=== PATIENT | female | born 1990 | race Two or more races ===

== ENCOUNTER 2022-04-11 11:30 | Inpatient (IN) | payer BC ==
[2022-04-11] MEDS ORDERED: OXYTOCIN 30 UNITS in 0.9% NS 30 UNIT/500 ML INFUS.BAG IVPB SCH (13:00)
[2022-04-11 13:44] LABS: BASO % 0.6 % (0-2.0); EOS % 0.5 % (0-4.5); HEMATOCRIT 32.7 % (32.4-45.2); HEMOGLOBIN 11.2 GM/dL (10.7-15.3); LYMPH % 14.4 % (8-40); MCH 28.2 pg (25.7-33.7); MCHC 34.3 g/dl (32.0-36.0); MEAN CELL VOLUME 82.2 fl (80-96); MEAN PLT VOLUME 10.3 fl (7.5-11.1); NEUT % 77.5 % (42.8-82.8); PLATELET COUNT 132 10^3/uL (134-434); RBC 3.98 M/mm3 (3.60-5.2); RDW 15.7 % (11.6-15.6); WHITE BLOOD COUNT 10.3 K/mm3 (4.0-10.0)
[2022-04-11 13:55] LABS: INR 0.97 (0.83-1.09); PROTHROMBIN TIME (PATIENT) 11.2 SEC (9.7-13.0)
[2022-04-11] MEDS: ELECTROLYTE-148 SOLN 1,000 ML IV SCH ×2 (13:55→20:30)
[2022-04-11 13:57] LABS: ACTIVATED PTT 25.2 SECONDS (25.2-36.5)
[2022-04-11 14:02] LABS: CALCIUM 8.1 mg/dL (8.5-10.1)
[2022-04-11 14:03] LABS: BLOOD UREA NITROGEN 7.8 mg/dL (7-18)
[2022-04-11 14:06] LABS: CREATININE 0.6 mg/dL (0.55-1.3)
[2022-04-11] MEDS ORDERED: OXYTOCIN 30 UNITS in 0.9% NS 30 UNIT/500 ML INFUS.BAG IVPB ONE (14:11)
[2022-04-11 14:43] VITALS: BMI 42.8
[2022-04-11] MEDS ORDERED: FENTANYL/BUPIVACAINE/NS/PF - PCEA - 50 ML DISP.SYRIN EP ONE ×2 (19:08→23:50)
[2022-04-11] MEDS ORDERED: NALOXONE HCL 0.4 MG/ML VIAL IVPUSH PRN (20:03)
[2022-04-11] MEDS ORDERED: FENTANYL/BUPIVACAINE/NS/PF - PCEA - 50 ML DISP.SYRIN EP SCH (20:15)
[2022-04-12] MEDS ORDERED: LIDOCAINE HCL 1% PRESERVATIVE FREE - 30ML VIAL ONE (00:23)
[2022-04-12] MEDS ORDERED: OXYTOCIN 20 UNITS in 0.9% NS 20 UNIT/1,000 ML INFUS.BAG IV ONE (00:24)
[2022-04-12] MEDS ORDERED: BUPIVACAINE HCL/PF 0.25% (2.5MG/ML) 10 ML VIAL ONE (01:23)
[2022-04-12] MEDS ORDERED: FENTANYL/BUPIVACAINE/NS/PF - PCEA - 50 ML DISP.SYRIN EP ONE (02:59)
[2022-04-12] MEDS: oxyCODONE HCL 5 MG TABLET PO PRN ×3 (07:30→20:27)
[2022-04-12] MEDS ORDERED: METHYLERGONOVINE MALEATE 0.2 MG/1 ML AMP IM PRN (07:34)
[2022-04-12] MEDS ORDERED: WITCH HAZEL 50% (TUCKS) 40 PAD/JAR PAD TP PRN (07:34)
[2022-04-12] MEDS ORDERED: BISACODYL 10 MG SUPP.RECT RC PRN (07:34)
[2022-04-12] MEDS ORDERED: BENZOCAINE 28 GM HEMORRHOIDAL OINTMENT TP PRN (07:34)
[2022-04-12] MEDS ORDERED: ACETAMINOPHEN 325 MG TABLET (FP) PO PRN (07:34)
[2022-04-12] MEDS ORDERED: BENZOCAINE 20% 57 GM BOTTLE TP PRN (07:34)
[2022-04-12] MEDS ORDERED: OXYTOCIN 20 UNITS in 0.9% NS 20 UNIT/1,000 ML INFUS.BAG IV SCH (07:45)
[2022-04-12] MEDS: PRENATAL VITAMINS W/ FOLIC ACID TABLET (FP) PO SCH (12:23)
[2022-04-12] MEDS: IBUPROFEN 600 MG TABLET (FP) PO PRN (12:23)
[2022-04-12] MEDS ORDERED: ceFAZolin 2 GRAM PREMIX BAG IVPB ONE (13:40)
[2022-04-12] MEDS ORDERED: CEFAZOLIN SODIUM 2 GM in DEXTROSE 5%-WATER 100 ML IVPB ONE (14:00)
[2022-04-13] MEDS: oxyCODONE HCL 5 MG TABLET PO PRN (04:19)
[2022-04-13] MEDS: IBUPROFEN 600 MG TABLET (FP) PO PRN ×3 (05:39→21:22)
[2022-04-13 09:13] LABS: BASO % 0.1 % (0-2.0); EOS % 0.1 % (0-4.5); HEMATOCRIT 24.9 % (32.4-45.2); HEMOGLOBIN 8.3 GM/dL (10.7-15.3); LYMPH % 8.5 % (8-40); MCH 27.6 pg (25.7-33.7); MCHC 33.4 g/dl (32.0-36.0); MEAN CELL VOLUME 82.9 fl (80-96); MEAN PLT VOLUME 10.6 fl (7.5-11.1); MONO % 5.2 % (3.8-10.2); NEUT % 86.1 % (42.8-82.8); PLATELET COUNT 121 10^3/uL (134-434); RBC 3.01 M/mm3 (3.60-5.2); RDW 15.8 % (11.6-15.6); WHITE BLOOD COUNT 18.2 K/mm3 (4.0-10.0)
[2022-04-13] MEDS: PRENATAL VITAMINS W/ FOLIC ACID TABLET (FP) PO SCH (09:33)
[2022-04-13] MEDS ORDERED: BISACODYL 10 MG SUPP.RECT PR ONE (09:40)
[2022-04-13] MEDS: DOCUSATE SODIUM 100 MG CAPSULE (FP) PO SCH ×2 (13:17→21:23)
[2022-04-13] MEDS ORDERED: SENNOSIDES/DOCUSATE COMBO (SENNA PLUS) TABLET (UD) PO PRN (22:00)
[2022-04-14] MEDS: DOCUSATE SODIUM 100 MG CAPSULE (FP) PO SCH (05:29)
[2022-04-14] MEDS: IBUPROFEN 600 MG TABLET (FP) PO PRN (05:35)
[2022-04-14 09:05] VITALS: BP 126/79; PULSE 90; TEMP 98.9
[2022-04-14] MEDS: PRENATAL VITAMINS W/ FOLIC ACID TABLET (FP) PO SCH (09:39)
== END 2022-04-14 12:20 | disposition home or self-care (01) | DRG 807 ==
LOC: JDEL 11:30 → JLDR 12:40 → J3W 04-12 09:50
PROVIDERS: ADMIT Obstetrics & Gynecology; ATTEND Obstetrics & Gynecology
PROC: 10E0XZZ Delivery of Products of Conception, External Approach (ICD-10-PCS; principal; 2022-04-12)
PROC: 0KQM0ZZ Repair Perineum Muscle, Open Approach (ICD-10-PCS; 2022-04-12)
DX: O70.1 Second degree perineal laceration during delivery (principal); Z37.0 Single live birth; Z3A.39 39 weeks gestation of pregnancy
CPT/HCPCS: 36415; 59409; 72170-TC-FY; 74018-TC-FY; 80048; 85025; 85461; 85610; 85730; 86762; 86850; 86900; 86901; 86999; 87340; C9803-CS; U0003; U0005

== ENCOUNTER 2024-09-13 01:30 | Inpatient (IN) | payer BC, OTHER ==
[2024-09-13] MEDS: LACTATED RINGERS SOLUTION 500 ML IV ONE ×2 (02:50→03:30)
[2024-09-13 03:13] LABS: INR 0.98 (0.83-1.09); PROTHROMBIN TIME (PATIENT) 11.3 SEC (9.7-13.0)
[2024-09-13 03:16] LABS: ACTIVATED PTT 25.3 SECONDS (25.2-36.5)
[2024-09-13 03:28] LABS: HEMATOCRIT 33.8 % (32.4-45.2); HEMOGLOBIN 11.5 GM/dL (10.7-15.3); MCH 28.8 pg (25.7-33.7); MCHC 34.1 g/dl (32.0-36.0); MEAN CELL VOLUME 84.3 fl (80-96); MEAN PLT VOLUME 9.6 fl (7.5-11.1); PLATELET COUNT 182 10^3/uL (134-434); RBC 4.01 M/mm3 (3.60-5.2); RDW 15.3 % (11.6-15.6); WHITE BLOOD COUNT 13.5 K/mm3 (4.0-10.0)
[2024-09-13 03:30] VITALS: BMI 40.9
[2024-09-13] MEDS ORDERED: FENTANYL/BUPIVACAINE/NS/PF - PCEA - 50 ML DISP.SYRIN EP ONE ×2 (03:41→09:11)
[2024-09-13] MEDS: FENTANYL/BUPIVACAINE/NS/PF - PCEA - 50 ML DISP.SYRIN EP SCH (04:30)
[2024-09-13 04:37] LABS: POTASSIUM 3.8 mmol/L (3.5-5.1)
[2024-09-13 04:39] LABS: BLOOD UREA NITROGEN 6.7 mg/dL (7-18); CALCIUM 8.3 mg/dL (8.5-10.1)
[2024-09-13 04:42] LABS: CREATININE 0.5 mg/dL (0.55-1.3)
[2024-09-13] MEDS ORDERED: NALOXONE HCL 0.4 MG/ML VIAL IVPUSH PRN (04:45)
[2024-09-13] MEDS ORDERED: LACTATED RINGERS SOLUTION 1,000 ML IV SCH (06:40)
[2024-09-13] MEDS ORDERED: OXYTOCIN 20 UNITS in 0.9% NS 20 UNIT/1,000 ML INFUS.BAG IV ONE (10:33)
[2024-09-13] MEDS: OXYTOCIN 20 UNITS in 0.9% NS 20 UNIT/1,000 ML INFUS.BAG IV SCH (10:45)
[2024-09-13] MEDS ORDERED: oxyCODONE HCL 5 MG TABLET PO PRN (10:51)
[2024-09-13] MEDS ORDERED: METHYLERGONOVINE MALEATE 0.2 MG/1 ML AMP IM PRN (10:51)
[2024-09-13] MEDS ORDERED: BISACODYL 10 MG SUPP.RECT RC PRN (10:51)
[2024-09-13] MEDS ORDERED: WITCH HAZEL 50% (TUCKS) 40 PAD/JAR PAD TP PRN (10:51)
[2024-09-13] MEDS ORDERED: BENZOCAINE 28 GM HEMORRHOIDAL OINTMENT TP PRN (10:51)
[2024-09-13] MEDS ORDERED: IBUPROFEN 600 MG TABLET (FP) PO ONE (12:14)
[2024-09-13] MEDS: IBUPROFEN 600 MG TABLET (FP) PO PRN (12:15)
[2024-09-13] MEDS: ACETAMINOPHEN 325 MG TABLET (FP) PO PRN (15:50)
[2024-09-13] MEDS: LACTATED RINGERS SOLUTION 1,000 ML/1,000 ML INFUS.BAG IV SCH (19:29)
[2024-09-14 07:29] LABS: BASO % 0.3 % (0-2.0); HEMATOCRIT 31.4 % (32.4-45.2); HEMOGLOBIN 10.2 GM/dL (10.7-15.3); LYMPH % 12.1 % (8-40); MCH 28.5 pg (25.7-33.7); MCHC 32.6 g/dl (32.0-36.0); MEAN CELL VOLUME 87.5 fl (80-96); MEAN PLT VOLUME 9.4 fl (7.5-11.1); MONO % 5.9 % (3.8-10.2); NEUT % 80.7 % (42.8-82.8); PLATELET COUNT 176 10^3/uL (134-434); RBC 3.59 M/mm3 (3.60-5.2); RDW 15.2 % (11.6-15.6); WHITE BLOOD COUNT 13.8 K/mm3 (4.0-10.0)
[2024-09-14] MEDS: PRENATAL VITAMINS W/ FOLIC ACID TABLET (FP) PO SCH (09:50)
[2024-09-14] MEDS: FLU VACCINE (FLULAVAL) PF 45 MCG/0.5 ML SYRINGE 2024-2025 IM ONE (09:51)
[2024-09-14 10:23] VITALS: RESP 17
[2024-09-14] MEDS: RHO(D) IMMUNE GLOBULIN 1,500 UNIT DISP.SYRIN IM ONE (16:06)
[2024-09-14] MEDS: LORATADINE 10 MG TABLET PO PRN (17:29)
[2024-09-14] MEDS: SENNOSIDES/DOCUSATE COMBO (SENNA PLUS) TABLET (UD) PO PRN (21:58)
[2024-09-15 09:12] VITALS: BP 106/70; PULSE 87; TEMP 97.7
[2024-09-15] MEDS: BENZOCAINE 20% 57 GM BOTTLE TP PRN (11:17)
== END 2024-09-15 14:30 | disposition home or self-care (01) | DRG 807 ==
LOC: JDEL 01:30 → JLDR 02:30 → J3W 13:50
PROVIDERS: ADMIT Obstetrics & Gynecology; ATTEND Obstetrics & Gynecology
PROC: 10E0XZZ Delivery of Products of Conception, External Approach (ICD-10-PCS; principal; 2024-09-13)
PROC: 0KQM0ZZ Repair Perineum Muscle, Open Approach (ICD-10-PCS; 2024-09-13)
PROC: 0W8NXZZ Division of Female Perineum, External Approach (ICD-10-PCS; 2024-09-13)
DX: O70.1 Second degree perineal laceration during delivery (principal); Z37.0 Single live birth; Z3A.38 38 weeks gestation of pregnancy
CPT/HCPCS: 36415; 59409; 80048; 82962; 85025; 85461; 85610; 85730; 86780; 86850; 86900; 86901; 90656; 96372; G0008; J2790